=== PATIENT | male | born 1970 ===

== ENCOUNTER 2019-04-19 23:33 | Emergency (ER) | payer SELFPAY ==
[2019-04-20] MEDS ORDERED: ACETAMINOPHEN 325 MG TABLET ONE (01:01)
[2019-04-20] MEDS ORDERED: IBUPROFEN 400 MG TAB ONE (01:02)
--- NOTE | 2019-04-20 02:52 | EDPHYS ---
Physician Documentation [facility] Name: Sujata Ascencio Age: 49 yrs Sex: Male : 1970 Arrival Date: 04/19/2019 Time: 23:37 Bed 16 Private MD: ED Physician Polo Subramanian HPI: 04/20 00:20 This 49 yrs old Unknown Male presents to ER via Ambulatory with complaints of Leg cp Swelling. 00:20 The patient presents with pain, that is acute, swelling, tenderness. The complaints cp affect the left ankle and left foot. Context: resulted from an unknown cause. Onset: The symptoms/episode began/occurred 5 day(s) ago. 00:20 Associated signs and symptoms: Pertinent negatives fever, rash, warmth, weakness. cp Historical: - Allergies: 00:15 No Known Allergies; tl1 - Home Meds: 00:15 metformin 500 mg Oral tab 1 tab 2 times per day for Type 2 Diabetes Mellitus [Active]; tl1 - PMHx: 00:15 Diabetes - NIDDM; tl1 - PSHx: 00:15 None; tl1 - Immunization history:: Adult Immunizations unknown. - Coronavirus screen:: The patient has NOT traveled to [place] in the past 14 days. The patient has NOT had contact with known/suspected case of Coronavirus?. - Social history:: Smoking status: Patient denies any tobacco usage or history of. Patient/guardian denies using alcohol, street drugs. - Ebola Screening: : Patient negative for fever greater than or equal to 101.5 degrees Fahrenheit, and additional compatible Ebola Virus Disease symptoms Patient denies exposure to infectious person Patient denies travel to an Ebola-affected area in the 21 days before illness onset. ROS: 00:25 Constitutional: Negative for body aches, chills, fever. cp 00:25 Eyes: Negative for injury, pain, redness, and discharge. cp 00:25 ENT: Negative for drainage from ear(s), ear pain, sore throat, difficulty swallowing, difficulty handling secretions. 00:25 Cardiovascular: Negative for chest pain, palpitations. 00:25 Respiratory: Negative for cough, shortness of breath, wheezing. 00:25 Abdomen/GI: Negative for abdominal pain, nausea, vomiting, and diarrhea. 00:25 Back: Negative for pain at rest, pain with movement. 00:25 MS/extremity: Positive for pain, swelling, tenderness, of the left Achilles and left ankle, Negative for injury or acute deformity, decreased range of motion. 00:25 Skin: Negative for cellulitis, rash. 00:25 Neuro: Negative for numbness, weakness. 00:25 All other systems are negative. Exam: 00:33 Constitutional: The patient appears in no acute distress, alert, awake, non-toxic, well cp developed, well nourished. 00:33 Head/Face: Normocephalic, atraumatic. cp 00:33 Eyes: Periorbital structures: appear normal, Conjunctiva: normal, no exudate, no injection, Sclera: no appreciated abnormality, Lids and lashes: appear normal, bilaterally. 00:33 ENT: External ear(s): are unremarkable, Nose: is normal, Mouth: Lips: moist, Oral mucosa: moist, Posterior pharynx: Airway: no evidence of obstruction, patent. 00:33 Chest/axilla: Inspection: normal. 00:33 Cardiovascular: Rate: normal, Rhythm: regular, Heart sounds: murmur, not appreciated, JVD: is not appreciated. 00:33 Respiratory: the patient does not display signs of respiratory distress, Respirations: normal, no use of accessory muscles, no retractions, labored breathing, is not present, Breath sounds: are clear throughout, no decreased breath sounds, no stridor, no wheezing. 00:33 Abdomen/GI: Exam negative for discomfort, distension, guarding, Inspection: abdomen appears normal. 00:33 Musculoskeletal/extremity: Extremities: grossly normal except: noted in the left Achilles and left ankle: pain, swelling, tenderness, noted swelling dorsum left foot, There is no evidence of deformity, erythema, Perfusion: the extremity is normally perfused throughout, Sensation intact. 00:33 Skin: cellulitis, is not appreciated, no rash present. Vital Signs: 00:15 BP 181 / 109; Pulse 91; Resp 17; Temp 99(O); Pulse Ox 100% ; Weight 77.11 kg; Height 5 tl1 ft. 7 in. (170.18 cm); Pain 6/10; 01:09 BP 168 / 100; Pulse 86; Resp 14 S; Pulse Ox 100% on R/A; bb 02:16 BP 160 / 93; Pulse 83; Resp 16 S; Pulse Ox 100% on R/A; bb 03:10 BP 149 / 90; Pulse 80; Resp 18; Temp 98; Pulse Ox 100% on R/A; mg2 00:15 Body Mass Index 26.63 (77.11 kg, 170.18 cm) tl1 MDM: 00:10 Patient medically screened. cp 01:00 Differential diagnosis: dislocation, closed fracture, contusion, tendonitis, DVT, cp cellulitis. 02:43 Data reviewed: vital signs, nurses notes, radiologic studies, plain films, ultrasound. cp Test interpretation: by ED physician or midlevel provider: plain radiologic studies, xrays of left ankle negative for fracture, US tech reports US left leg negative for DVT. 02:50 Counseling: I had a detailed discussion with the patient and/or guardian regarding: the cp historical points, exam findings, and any diagnostic results supporting the discharge/admit diagnosis, radiology results, the need for outpatient follow up, a family practitioner, to return to the emergency department if symptoms worsen or persist or if there are any questions or concerns that arise at home. 02:50 Response to treatment: the patient's symptoms have mildly improved after treatment, and cp as a result, I will discharge patient. 04/20 01:18 Order name: Glucose, Ancillary Testing; Complete Time: 01:32 EDMS 04/20 01:32 Interpretation: Abnormal: GLUC,ANCIL 162. cp 04/20 00:11 Order name: US Extremity Venous Unilateral Ltd cp 04/20 00:11 Order name: XRAY Ankle LEFT 3 view cp 04/20 00:34 Order name: Accucheck Blood Glucose; Complete Time: 01:09 cp 04/20 02:48 Order name: Gerard wrap-joint; Complete Time: 03:09 cp 04/20 02:48 Order name: Aircast Ankle Splint; Complete Time: 03:09 cp Administered Medications: 01:08 Drug: Tylenol 650 mg Route: PO; bb 02:17 Follow up: Response: No adverse reaction bb 01:09 Drug: Ibuprofen 800 mg Route: PO; bb 02:17 Follow up: Response: No adverse reaction bb Disposition: 03:32 Co-signature as Attending Physician, Polo Subramanian MD. rn Disposition: 04/20/19 02:50 Discharged to Home. Impression: Pain in left ankle and joints of left foot. - Condition is Stable. - Discharge Instructions: Elastic Bandage and RICE, Ankle Pain. - Prescriptions for Diclofenac Sodium 75 mg Oral Tablet, Delayed Release (E.C.) - take 1 tablet by ORAL route 2 times per day; 20 tablet. - Medication Reconciliation Form, Thank You Letter, Antibiotic Education, Prescription Opioid Use form. - Follow up: Private Physician; When: 2 - 3 days; Reason: Recheck today's complaints. - Problem is new. - Symptoms have improved. Signatures: Dispatcher [employer] EDIsadora Huerta RN RN Polo Waite MD MD rn Lasagna, Tonya, RN RN tl1 Jasson Bui PA PA David Mcmullen RN RN mg2 Corrections: (The following items were deleted from the chart) 03:09 02:48 Crutches ordered. cp mg2 03:11 02:50 04/20/2019 02:50 Discharged to Home. Impression: Pain in left ankle and joints of mg2 left foot. Condition is Stable. Forms are Medication Reconciliation Form, Thank You Letter, Antibiotic Education, Prescription Opioid Use. Follow up: Private Physician; When: 2 - 3 days; Reason: Recheck today's complaints. Problem is new. Symptoms have improved. cp
--- NOTE | 2019-04-20 02:52 | ER ---
Nurse's Notes [facility] Name: Sujata Ascencio Age: 49 yrs Sex: Male : 1970 Arrival Date: 04/19/2019 Time: 23:37 Bed 16 Private MD: Diagnosis: Pain in left ankle and joints of left foot Presentation: 04/20 00:12 Presenting complaint: Patient states: I have pain in the back of my left ankle and tl1 swelling. this started about 5 days ago. 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 When I wake up the swelling is better but then comes back during the day. Transition of care: patient was not received from another setting of care. Onset of symptoms was April 14, 2019. Risk Assessment: Do you want to hurt yourself or someone else? Patient reports no desire to harm self or others. Initial Sepsis Screen: Does the patient meet any 2 criteria? No. Patient's initial sepsis screen is negative. Does the patient have a suspected source of infection? No. Patient's initial sepsis screen is negative. Care prior to arrival: None. 00:12 Acuity: STEVEN 3 tl1 00:29 Method Of Arrival: Ambulatory bb Triage Assessment: 00:28 General: Appears in no apparent distress. Behavior is calm, cooperative. bb Musculoskeletal: Swelling present in left ankle. Historical: - Allergies: 00:15 No Known Allergies; tl1 - Home Meds: 00:15 metformin 500 mg Oral tab 1 tab 2 times per day for Type 2 Diabetes Mellitus [Active]; tl1 - PMHx: 00:15 Diabetes - NIDDM; tl1 - PSHx: 00:15 None; tl1 - Immunization history:: Adult Immunizations unknown. - Coronavirus screen:: The patient has NOT traveled to [place] in the past 14 days. The patient has NOT had contact with known/suspected case of Coronavirus?. - Social history:: Smoking status: Patient denies any tobacco usage or history of. Patient/guardian denies using alcohol, street drugs. - Ebola Screening: : Patient negative for fever greater than or equal to 101.5 degrees Fahrenheit, and additional compatible Ebola Virus Disease symptoms Patient denies exposure to infectious person Patient denies travel to an Ebola-affected area in the 21 days before illness onset. Screenin:18 Abuse screen: Denies threats or abuse. Denies injuries from another. Nutritional tl1 screening: No deficits noted. Tuberculosis screening: No symptoms or risk factors identified. Fall Risk None identified. Assessment: 00:16 General: Appears in no apparent distress. Pain: Complains of pain in left Achilles Pain tl1 currently is 6 out of 10 on a pain scale. Quality of pain is described as aching, Aggravated by increased activity. Neuro: Level of Consciousness is awake, alert, obeys commands, Oriented to person, place, time, situation. Cardiovascular: Denies chest pain. Respiratory: Airway is patent Trachea midline Respiratory effort is even, unlabored. GI: No signs and/or symptoms were reported involving the gastrointestinal system. : No signs and/or symptoms were reported regarding the genitourinary system. EENT: No signs and/or symptoms were reported regarding the EENT system. Musculoskeletal: Circulation, motion, and sensation intact. 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 01:10 Reassessment: Patient is alert, oriented x 3, equal unlabored respirations, skin bb warm/dry/pink. pt resting quietly awaiting US. 02:16 Reassessment: Patient is alert, oriented x 3, equal unlabored respirations, skin bb warm/dry/pink. pt resting quietly talking to sister on phone, awaiting US. Vital Signs: 00:15 BP 181 / 109; Pulse 91; Resp 17; Temp 99(O); Pulse Ox 100% ; Weight 77.11 kg; Height 5 tl1 ft. 7 in. (170.18 cm); Pain 6/10; 01:09 BP 168 / 100; Pulse 86; Resp 14 S; Pulse Ox 100% on R/A; bb 02:16 BP 160 / 93; Pulse 83; Resp 16 S; Pulse Ox 100% on R/A; bb 03:10 BP 149 / 90; Pulse 80; Resp 18; Temp 98; Pulse Ox 100% on R/A; mg2 00:15 Body Mass Index 26.63 (77.11 kg, 170.18 cm) tl1 ED Course: 04/19 23:37 Patient arrived in ED. cl3 04/20 00:00 Jasson Bui PA is PHCP. cp 00:00 Polo Subramanian MD is Attending Physician. cp 00:13 Triage completed. tl1 00:16 Arm band placed on left wrist. tl1 00:27 Isadora Hutchins, WILMA is Primary Nurse. bb 00:28 Placed in gown. Bed in low position. Call light in reach. Pulse ox on. NIBP on. bb 01:59 XRAY Ankle LEFT 3 view In Process Unspecified. EDMS 02:43 US Extremity Venous Unilateral Ltd In Process Unspecified. EDMS 02:47 Report given to David DILLON. bb 03:10 No provider procedures requiring assistance completed. Patient did not have IV access mg2 during this emergency room visit. Gerard wrap to left ankle Air stirrup applied to left ankle. Administered Medications: 01:08 Drug: Tylenol 650 mg Route: PO; bb 02:17 Follow up: Response: No adverse reaction bb 01:09 Drug: Ibuprofen 800 mg Route: PO; bb 02:17 Follow up: Response: No adverse reaction bb Outcome: 02:50 Discharge ordered by MD. cp 03:11 Discharged to home ambulatory. mg2 03:11 Condition: stable 03:11 Discharge instructions given to patient, family, Instructed on discharge instructions, follow up and referral plans. medication usage, Demonstrated understanding of instructions, follow-up care, medications, Prescriptions given X 1. 03:11 Patient left the ED. mg2 Signatures: Dispatcher [employer] EDIsadora Huerta, Michelle Linton RN, RN RN tl1 Jasson Bui PA PA cp [place], Michele, RN RN mg2 Lukas Vides cl3
[2019-04-20 05:04] VITALS: O2SAT 100
[2019-04-20 05:08] VITALS: BP 149/90; TEMP 98
--- NOTE | 2019-04-20 07:45 | RAD REPORT ---
EXAM DESCRIPTION: RAD - Ankle Left 3 View - 04/20/2019 1:58 am CLINICAL HISTORY: SWELLING, no trauma history, ankle pain COMPARISON: No comparisons FINDINGS: No fracture, dislocation or periosteal reaction. No joint effusion seen. No joint space na rrowing. Small to moderate-sized plantar spur is present with spurring at the Achilles tendon attachm ent. Soft tissue swelling is present around the ankle joint. Baseline for the patient not known. No air or foreign body in the soft tissues. IMPRESSION: Left ankle soft tissue swelling without acute bone or joint finding evident. Plantar and Achilles tendon spurring.
--- NOTE | 2019-04-20 07:46 | RAD REPORT ---
EXAM DESCRIPTION: US - Extremity Venous Uni Ltd - 04/20/2019 2:43 am CLINICAL HISTORY: SWELLING, left leg pain COMPARISON: None. TECHNIQUE: Real-time sonographic evaluation of the left lower extremity deep venous system was perfo rmed. FINDINGS: Normal compressibility, flow augmentation, phasic flow and spontaneous flow are identified in the left lower extremity common femoral, superficial femoral, popliteal and posterior tibial vein s. No intraluminal filling defects seen. IMPRESSION: No DVT in the left lower extremity.
== END 2019-04-20 03:11 | disposition home or self-care (01) ==
LOC: ER 23:33
DX: M25.572 Pain in left ankle and joints of left foot (principal); E11.9 Type 2 diabetes mellitus without complications
CPT/HCPCS: 82947; 93971; 99284